=== PATIENT | male | born 1960 | race American Indian/Alaskan Native ===

== ENCOUNTER 2017-09-23 17:27 | Emergency (ER) | payer MEDICAID ==
[2017-09-23] MEDS ORDERED: FUL-GLO OP ONE (19:10)
--- NOTE | 2017-09-23 19:10 | Emergency Department Report ---
ED Rash HPI - HPI Chief Complaint: Eye Problems Stated Complaint: RASH AND RED ITCHY EYES Time Seen by Provider: 09/23/17 18:51 Location: Head Rash Symptoms: Yes Itching, No Facial Swelling, No Tongue/Oral Swelling, No Breathing Difficulties, No Choking Sensation, No Wheezing/Dyspnea, No Peeling, No Blistering, No Fever, No Lightheaded, No Malaise, No Myalgias Severity: moderate Other History: 57-year-old male presents with complaint of several months of intermittent slightly itchy rash on skin. On upper extremities upper chest and back. Denies contact with any new allergens, Skin cosmetics new foods new medicines. Also states that he has foreign body sensation in right eye with slight eye redness. Denies any trauma to eyes. Denies fevers chills nausea or vomiting. Accompanied by daughter at bedside. ED Review of Systems ROS: Stated complaint: RASH AND RED ITCHY EYES Other details as noted in HPI Constitutional: denies: chills, fever Eyes: as per HPI. denies: eye pain, eye discharge, vision change ENT: denies: ear pain, throat pain Respiratory: denies: cough, shortness of breath, wheezing Cardiovascular: denies: chest pain, palpitations Endocrine: no symptoms reported Gastrointestinal: denies: abdominal pain, nausea, diarrhea Genitourinary: denies: urgency, dysuria Musculoskeletal: denies: back pain, joint swelling, arthralgia Skin: as per HPI, rash. denies: lesions Neurological: denies: headache, weakness, paresthesias Psychiatric: denies: anxiety, depression Hematological/Lymphatic: denies: easy bleeding, easy bruising ED Past Medical Hx - Past Medical History Previous Medical History?: Yes Additional medical history: n/v, food poisoning - Surgical History Past Surgical History?: Yes Hx Cholecystectomy: Yes - Social History Smoking Status: Former Smoker Substance Use Type: None - Medications Home Medications: Home Medications Medication Instructions Recorded Confirmed Last Taken Type Cetirizine HCl [ZyrTEC] 10 mg PO QDAY #30 capsule 09/23/17 Unknown Rx Colloidal Oatmeal [Oatmeal Bath] 1 each TP ONCE #1 packet 09/23/17 Unknown Rx Hydrocortisone 1% [Hydrocortisone 1 applicatio TP TID PRN #1 tube 09/23/17 Unknown Rx 1% CREAM] Naphazoline HCl/Pheniramine 1 drop OP Q4H PRN #1 bottle 09/23/17 Unknown Rx [Naphcon-A Eye Drops] Tobramycin 0.3% [Tobrex] 1 drop OU Q4H #1 bottle 09/23/17 Unknown Rx hydrOXYzine HCL [Atarax] 25 mg PO Q6HR PRN #20 tablet 09/23/17 Unknown Rx Rash Exam - Exam General: Vital signs noted. No distress. Alert and acting appropriately. HEENT: Yes Conjuctival Injection (right eye, some flourecien uptake, small abrasion), No Periorbital Edema, No Chemosis, No Perioral Edema, No Tongue Edema , No Uvular Edema, No Compromised Airway, No Drooling Lungs: Yes Good Air Exchange (Normal Breath Sounds), No Wheezes, No Ronchi, No Stridor, No Cough, No Labored Respirations, No Retractions, No Use of Accessory Muscles, No Other Abnormal Lung Sounds Heart: Yes Regular, No Murmur Skin: Yes Maculopapular Rash, No Urticarial Rash, No Morbilliform rash, No Bulla (e), No Excoriations, No Weeping, No Tenderness, No Erythema, No Edema, No Encrustations, No Other Other: Positive: Abdomen Normal, Neurologic Normal, Musculoskeletal Normal ED Course Vital Signs 09/23/17 17:44 Temperature 97.8 F Pulse Rate 87 Respiratory 18 Rate Blood Pressure 147/98 O2 Sat by Pulse 98 Oximetry ED Medical Decision Making - Lab Data Result diagrams: 09/23/17 19:29 09/23/17 19:29 - Medical Decision Making A/P: Conjunctivitis, corneal abrasion, allergic dermatitis 1-tobramycin drops, eye drops, follow-up with ophthalmology. Vision is 20/20 2-antihistamines for skin rash 3-labs unremarkable Critical care attestation.: If time is entered above; I have spent that time in minutes in the direct care of this critically ill patient, excluding procedure time. ED Disposition Clinical Impression: Allergic dermatitis Corneal abrasion Qualifiers: Encounter type: initial encounter Laterality: unspecified laterality Qualified Code(s): S05.00XA - Injury of conjunctiva and corneal abrasion without foreign body, unspecified eye, initial encounter Conjunctivitis Qualifiers: Conjunctivitis type: acute Acute conjunctivitis type: unspecified Laterality: bilateral Qualified Code(s): H10.33 - Unspecified acute conjunctivitis, bilateral Disposition: DC-01 TO HOME OR SELFCARE Is pt being admited?: No Does the pt Need Aspirin: No Condition: Stable Instructions: Conjunctivitis (ED), Corneal Abrasion (ED), Allergic Rhinitis (ED ) Prescriptions: Cetirizine HCl [ZyrTEC] 10 mg PO QDAY #30 capsule Colloidal Oatmeal [Oatmeal Bath] 1 each TP ONCE #1 packet Hydrocortisone 1% [Hydrocortisone 1% CREAM] 1 applicatio TP TID PRN #1 tube PRN Reason: Itching hydrOXYzine HCL [Atarax] 25 mg PO Q6HR PRN #20 tablet PRN Reason: Itching Naphazoline HCl/Pheniramine [Naphcon-A Eye Drops] 1 drop OP Q4H PRN #1 bottle PRN Reason: Dry Eye(S) Tobramycin 0.3% [Tobrex] 1 drop OU Q4H #1 bottle [facility]: [facility] [Outside] - 3-5 Days [facility] [Outside] - 3-5 Days CESAR GUTIERREZ MD [Staff Physician] - 3-5 Days Time of Disposition: 20:17
[2017-09-23 19:46] LABS: Basophils % (Auto) 0.7 % (0.0-1.8); Eosinophils % (Auto) 2.4 % (0.0-4.3); Hematocrit 41.2 % (35.5-45.6); Mean Corpuscular HGB Conc 34 % (32-34); Mean Corpuscular Hemoglobin 28 pg (28-32); Mean Corpuscular Volume 83 fl (84-94); Platelet Count 253 K/mm3 (140-440); Red Blood Count 4.97 M/mm3 (3.65-5.03); Red Cell Distribution Width 14.2 % (13.2-15.2); White Blood Count 5.2 K/mm3 (4.5-11.0)
[2017-09-23 20:00] LABS: INR 0.9 (0.87-1.13)
[2017-09-23 20:01] LABS: Partial Thromboplastin Time 29.6 Sec. (24.2-36.6)
[2017-09-23 20:02] LABS: Anion Gap 15 mmol/L; BUN/Creatinine Ratio 19; Blood Urea Nitrogen 15 mg/dL (9-20); Calcium 8.4 mg/dL (8.4-10.2); Carbon Dioxide 27 mmol/L (22-30); Chloride 96.7 mmol/L (98-107); Glucose 141 mg/dL (75-100); Potassium 3.6 mmol/L (3.6-5.0); Sodium 135 mmol/L (137-145)
[2017-09-23 20:08] LABS: Alanine Aminotransferase 52 units/L (7-56); Albumin 3.8 g/dL (3.9-5); Albumin/Globulin Ratio 1.5 %; Alkaline Phosphatase 126 units/L (35-129); Total Protein 6.4 g/dL (6.3-8.2)
[2017-09-23 20:28] VITALS: BP 131/98
[2017-09-23 20:37] LABS: Bilirubin,Direct < 0.2 mg/dL (0-0.2); Bilirubin,Indirect 0.3 mg/dL
== END 2017-09-23 20:47 | disposition home or self-care (01) ==
LOC: ED 17:27
DX: L23.9 Allergic contact dermatitis, unspecified cause (principal); S05.01XA Injury of conjunctiva and corneal abrasion without foreign body, right eye, initial encounter; H10.9 Unspecified conjunctivitis; Z87.891 Personal history of nicotine dependence; X58.XXXA Exposure to other specified factors, initial encounter; Y93.89 Activity, other specified; Y92.89 Other specified places as the place of occurrence of the external cause; Y99.8 Other external cause status
CPT/HCPCS: 36415; 80048; 80074; 85025; 85610; 85730; 99283